=== PATIENT | male | born 1995 | race Caucasian/White ===

== ENCOUNTER 2019-07-25 19:49 | Emergency (ER) | payer OTHER ==
[~2019-07-25] VITALS: Ht 162.6 cm; Wt 79.8 kg
[2019-07-25 19:53] VITALS: Ht 162.6 cm; Wt 79.8 kg
[2019-07-25 21:46] VITALS: BP 138/79
== END 2019-07-25 21:46 | disposition home or self-care (01) ==
LOC: ED 19:49
DX: S61.412A Laceration without foreign body of left hand, initial encounter (principal); W26.0XXA Contact with knife, initial encounter; Y93.G9 Activity, other involving cooking and grilling; Y99.0 Civilian activity done for income or pay; Y92.89 Other specified places as the place of occurrence of the external cause
CPT/HCPCS: 90715; J2001

== ENCOUNTER 2020-04-14 13:39 | Emergency (ER) | payer MEDICAID ==
[~2020-04-14] VITALS: Ht 160 cm; Wt 79.4 kg
[2020-04-14 14:52] VITALS: BP 138/81; Ht 160 cm; Wt 79.4 kg
== END 2020-04-14 15:31 | disposition home or self-care (01) ==
LOC: ED 13:39
DX: S46.912A Strain of unspecified muscle, fascia and tendon at shoulder and upper arm level, left arm, initial encounter (principal); F41.9 Anxiety disorder, unspecified; M54.2 Cervicalgia; X58.XXXA Exposure to other specified factors, initial encounter; Y93.89 Activity, other specified; Y92.89 Other specified places as the place of occurrence of the external cause; Y99.8 Other external cause status

== ENCOUNTER 2020-06-05 21:15 | Emergency (ER) | payer OTHER, MEDICAID ==
[~2020-06-05] VITALS: Ht 162.6 cm; Wt 83.1 kg
[2020-06-05 21:57] VITALS: Ht 162.6 cm; Wt 83.1 kg
[2020-06-06 00:35] VITALS: BP 122/75
== END 2020-06-06 00:46 | disposition home or self-care (01) ==
LOC: ED 21:15
DX: M62.838 Other muscle spasm (principal)